=== PATIENT | female | born 1950 | race Caucasian/White ===

== ENCOUNTER → 2016-05-20 | Outpatient (CLI) | payer BC ==
[~2016-05-20] MED LIST: ADVIL200 M2 PO; INSTAFLEX PO; MULTI-VITAMIN1 TAB; TYLENOL ARTHRITIS PO
--- NOTE | ~2016-05-20 | BD1 ---
[facility] A Service of [facility] & [facility] RADIOLOGY TEXT RESULTS PATIENT: JOSE J LAGUNA LOCATION: [facility] : 54 UNIT #: [id number] AGE: [address]: Skye Arias MD SEX: F ORDER DR: [id number] [facility] [address] [place], [place] [address] [id number] O MR#: [id number] Acc #: [id number] NAME: JOSE J LAGUNA : 1950 SEX: F STUDY DATE/TIME: 05/20/2016 15:03 UNIT: [facility] ROOM: STUDY DESCRIPTION: BD Dexa Bone Dens 1+ Site Attending Physician: Skye Arias M.D. Ordering Physician: Skye Arias M.D. Primary Care Physician: Skye Arias M.D. MEDICAL IMAGING REPORT This report is preliminary unless electronic signature is present EXAM DXA scan 05/20/2016 HISTORY Status post menopause with no hormone replacement therapy. Osteopenia. Family history of breast carcinoma in mother. Arthritis. Left total hip replacement. FINDINGS Bone mineral density in the lumbar spine from L1-L4 was 0.826 g/cm2 which is 2 standard deviations below the mean when compared to the young adult reference population which is characteristic of osteopenia. This is 0.3 standard deviations below the mean when compared to the age-matched population. Compared with 04/14/2014 there has been a decrease in bone mineral density in the lumbar spine of 3%. Bone mineral density in the right femoral neck was 0.564 g/cm2 which is 2.6 standard deviations below the mean when compared to the young adult reference population which is characteristic of osteoporosis. This is 1.1 standard deviations below the mean when compared to the age-matched population. Compared with 04/14/2014 there has been a decrease in bone mineral density in the right hip of 3.9%. IMPRESSION Bone mineral density in the lumbar spine characteristic of osteopenia and within the right hip characteristic of osteoporosis. Compared with 04/14/2014 there has been a decrease in bone mineral density in the lumbar spine and the right hip. Dictated by... Jos Doran M.D. THIS IS AN ELECTRONICALLY VERIFIED REPORT Jos Doran M.D. at 05/21/2016 7:47 AM [facility] A Service of [facility] & [facility] RADIOLOGY TEXT RESULTS PATIENT: JOSE J LAGUNA LOCATION: [facility] #: [id number] : 54 UNIT #: [id number] AGE: [address]: Skye Arias MD SEX: F ORDER DR: Marcos TD: 05/20/2016 17:30 JOB #: [id number] MEDICAL IMAGING REPORT Page 1 of 1 COPY
--- NOTE | ~2016-05-20 | MY11 ---
[facility] A Service of [facility] RADIOLOGY TEXT RESULTS PATIENT: JOSE J LAGUNA LOCATION: [facility] : 54 UNIT #: [id number] AGE: [address]: Skye Arias MD SEX: F ORDER DR: [id number] [facility] [address] [place], [place] [address] [id number] O MR#: [id number] Acc #: [id number] NAME: JOSE J LAGUNA : 1950 SEX: F STUDY DATE/TIME: 05/20/2016 15:13 UNIT: [facility] ROOM: STUDY DESCRIPTION: MY Mammogram Screening Dig Jeronimo Attending Physician: Skye Arias M.D. Ordering Physician: Skye Arias M.D. Primary Care Physician: Skye Arias M.D. MEDICAL IMAGING REPORT This report is preliminary unless electronic signature is present EXAM Digital screening mammogram, 05/20/2016, [facility]. HISTORY 66-year-old woman positive family history, mother age 49. Annual screen. COMPARISON STUDIES Mammograms date to 02/02/2007 with most recent screening comparison 05/17/2015. TECHNIQUE Digital imaging of each breast was completed utilizing screening protocol. Review includes FDA-approved CAD device. FINDINGS Breast parenchyma is mildly heterogeneous. Mild duct prominence bilaterally is stable. There is no interval occurring breast mass. There are no suspicious microcalcifications and no architectural deformity. IMPRESSION Negative mammogram. Annual screening recommended. Patients over the age of 40 are entered into a reminder system with target due date for the next mammogram. A result letter will also be sent to the patient. BIRADS: 1 Negative Dictated by... Virgil Cohen M.D. [facility] A Service [facility] & [facility] RADIOLOGY TEXT RESULTS PATIENT: JOSE J LAGUNA LOCATION: [facility] : 54 UNIT #: [id number] AGE: [address]: Skye Arias MD SEX: F ORDER DR: THIS IS AN ELECTRONICALLY VERIFIED REPORT Virgil Cohen M.D. at 05/21/2016 8:01 AM JORGE/tommy TD: 05/20/2016 17:28 JOB #: [id number] MEDICAL IMAGING REPORT Page 1 of 1 COPY
== END | disposition home or self-care (01) ==
LOC: CWCC 14:36
DX: Z12.31 Encounter for screening mammogram for malignant neoplasm of breast (principal); Z80.3 Family history of malignant neoplasm of breast; M85.88 Other specified disorders of bone density and structure, other site; M81.0 Age-related osteoporosis without current pathological fracture
CPT/HCPCS: 77080; G0202